=== PATIENT | male | born 1950 | race Caucasian/White ===

== ENCOUNTER 2017-03-19 12:34 | Inpatient (IN) | payer OTHER ==
--- NOTE | ~2017-03-19 | DS ---
Discharge Summary [facility] [address] [place]. [address] NAME: NICCI ONEILL : 48 STATUS : DIS IN PAT#: [id number] AGE: 66 ADM/REG DATE : 03/19/17 MR#: [id number] REPORT SERV DATE: 03/22/17 DICTATED BY: JENA RESENDIZ DATE: 03/21/17 REPORT STATUS : Draft TRANSCRIBED BY: MODL DATE: 03/21/17 ADMISSION DATE: 03/19/2017 DISCHARGE DATE: 03/21/2017 DIAGNOSES OF DISCHARGE: 1. Left lower extremity weakness, resolved. Questionable transient ischemic attack versus vitamin B12 deficiency. 2. History of paroxysmal atrial fibrillation, on Xarelto. 3. Bipolar disorder. 4. Peripheral arterial disease. 5. Coronary artery disease, status post CABG. 6. Significant degenerative joint disease, osteoarthritis. CONSULTANTS ON THE CASE: Dr. Perkins, Neurology. PROCEDURE DONE DURING THIS HOSPITALIZATION: None. TESTS DONE DURING THIS HOSPITALIZATION: Include a CT scan of the brain without contrast on 03/19/2017 showing no acute infarct or hemorrhage, just mild atrophy and chronic white matter gliosis. There is a CT of the thoracic spine without contrast showing numerous osteophytes extended from the vertebral bodies laterally with syndesmophyte formation, but no osteolytic or osteoblastic lesions. CT of the pelvis without contrast showed degenerative joint disease of the lumbar spine, but no acute abnormalities. Spine, lumbar CT showed mild spinal stenosis. Also, CT of the lumbar spine showed mild spinal stenosis at the L2-L3, moderate spinal stenosis of the L3-L4. An MRI of the brain without contrast showed that the patient has mild chronic small-vessel ischemic changes in the supratentorial compartment and mild cortical volume loss. No acute finding demonstrated on noncontrast MRI of the brain. Also, the patient did have a cardiac echo showing a normal left ventricular systolic function and normal left ventricular diastolic dysfunction. Also, right ventricular systolic function intact. No significant valvular dysfunction. No cardiac source of embolus that could be delineated. Also, carotid ultrasound that has been performed on 03/21/2017, showing that there is no significant carotid stenosis. The vertebral arteries exhibit antegrade flow. The patient has been ruled out for WI by serial cardiac enzymes and serial EKGs. His folate was 19.3, vitamin B12 was 190. His TSH was 0.688. His hemoglobin A1c was 4.8. Lactate is 0.7. Also, his UA has been negative, and his blood cultures have been negative at two days. HOSPITAL COURSE: This is a very pleasant 66-year-old gentleman; patient of Dr. Leatha Phelps, primary care provider; admitted to [facility] on 03/19/2017 with left-sided weakness. He has been reporting that going to the shower in the morning of 03/19/2017, he noted a left lower extremity weakness and unable to get himself into the shower without manually lifting his left lower extremity. He was noted at that time, to have significant weakness. As a result, he presented to [facility]. On the 03/20/2017 morning, the weakness had completely resolved. He denied any numbness to the left lower extremity, any weakness in the bilateral lower extremities. No dysarthria or language difficulties. No vertigo or diplopia. No headaches, no chest pain, or shortness of breath. No nausea or Discharge Summary [address] [address] NAME: NICCI ONEILL : 48 STATUS : DIS IN PAT#: [id number] AGE: 66 ADM/REG DATE : 03/19/17 MR#: [id number] REPORT SERV DATE: 03/22/17 DICTATED BY: JENA RESENDIZ DATE: 03/21/17 REPORT STATUS : Draft TRANSCRIBED BY: ANNMARIE DATE: 03/21/17 vomiting. No other complaints. The patient has been admitted to Hospitalist Service and Neurology consult with Dr. Perkins has been requested. It is very important to note that he had an extensive workup with a CT of the brain showing no acute process. MRI of the brain, showing no stroke. Thoracic spine CT demonstrated calcification in the posterior aspect of the T5-T6 with no clear cord compression. The CT of the lumbar spine demonstrated just mild canal stenosis and moderate stenosis at the L2-L3 as well as the L3-L4 level respectively. There was a concern for possible TIA versus related to vitamin B12 deficiency. Recommendation would be to continue his Plavix, continue his home Pravachol, and also to continue his Xarelto for now, and vitamin B12 supplementation. The patient did have hemoglobin A1c checked, which has been 4.8, and his fasting lipid profile showing cholesterol of 166, HDL 49, ALT 85 and triglycerides 163. On 03/21/2017, the patient had been ready for discharge. MEDICATIONS AT DISCHARGE: Include: Lipitor 80 mg p.o. daily, Plavix 75 p.o. daily, vitamin B12 1000 mcg p.o. daily, Valium 10 mg p.o. b.i.d. p.r.n. anxiety, gabapentin 300 at bedtime, Lamictal 200 at bedtime, lisinopril 40 mg p.o. daily, Xarelto 20 mg p.o. daily, sotalol 80 twice a day, Carafate 1 g p.o. with meals, Hytrin 1 mg at bedtime, hydralazine 50 p.o. three times a day, prednisone 10 mg p.o. daily, hydrocodone p.r.n. 0.5-1 tab p.o. three times a day as well as Maxzide hydrochlorothiazide 1 tablet p.o. every morning. The patient has been advised to follow up with his primary care provider, Dr. Mattie Zhang in one week after discharge. It is very important to note that the patient worked with Physical Therapy during this hospitalization. Recommended outpatient Physical Therapy, but the patient has denied adamantly to follow up with outpatient PT. CF/MODL Jena Resendiz M.D. / [id number] CC: Lauren Strauss Frances
--- NOTE | ~2017-03-19 | HP ---
History And Physical [facility] [address] [place]. [address] NAME: NICCI ONEILL : 48 STATUS : ADM IN PAT#: [id number] AGE: 66 ADM/REG DATE : 03/19/17 MR#: [id number] REPORT SERV DATE: 03/20/17 DICTATED BY: SAIGE BRADY DATE: 03/19/17 REPORT STATUS : Draft TRANSCRIBED BY: MODL DATE: 03/19/17 DATE OF ADMISSION: 03/19/2017 CHIEF COMPLAINT: Left-sided weakness. HISTORY OF PRESENT ILLNESS: This is a 66-year-old male who suffers from obesity, CAD with prior CABG, history of mesenteric ischemia status post celiac and SMA stenting, known history of diverticulitis, C. diff colitis as well, hypertension, hyperlipidemia, paroxysmal atrial AFib on Xarelto, IBS, bipolar disease, PAD, known history of celiac and SMA stenting, BPH, osteoarthritis, known history of unclear back surgery, apparently saw Margareth over a year ago. The patient comes in with about a three-day episode of increasing left-sided weakness. It appears to be more in his left lower extremities, some mild encephalopathy per his family as well. This has never occurred before. There are no speech difficulties, no trouble swallowing. The patient does not endorse any known fevers or chills, nausea, vomiting, diarrhea, chest pain or chest pressure, or shortness of breath that the patient endorsed to me. The patient states he has been having increasing left-sided hip pain going to his low back as well. He is not even able to ambulate in the morning given significant pain. Apparently, he has to place his hip in a certain position to be able to ambulate. PAST MEDICAL HISTORY: See above. PAST SURGICAL HISTORY: See above. ALLERGIES: APPARENTLY OXYCODONE, HYDROCODONE, AND PHENERGAN. SOCIAL HISTORY: Does not drink, do drugs, or do alcohol apparently, though he states that was the case in the past but now he drinks possibly 4 ounces of hard liquor 190 proof a day. FAMILY HISTORY: Hypertension at least one parent. OBJECTIVE: VITAL SIGNS: Blood pressure 189 systolic over 110, 98.2 temperature, 69 pulse, 16 respirations, 94% on room air. GENERAL: In no acute distress. HEENT: PERRLA. No scleral icterus. CARDIOVASCULAR: Regular rate and rhythm. No murmur. RESPIRATORY: Decreased breath sounds bibasilar. ABDOMEN: Nontender, nondistended. Positive bowel sounds. EXTREMITIES: No edema. No ecchymosis. NEURO: He initially thought it was February then he said it was March. Otherwise, he is just a bit slow to speech but A and O x4/4. LABORATORY DATA: He has a white count 10.7, hemoglobin 12.7, platelets 164,000. 4.3 potassium, 140 sodium, 32 bicarb, 1.26 creatinine, 15 BUN. INR 1.0. Albumin . LFTs are normal. Troponin negative. 137 sugar. CTA of the head did History And Physical [address] [address] NAME: NICCI ONEILL : 48 STATUS : ADM IN [facility]#: [id number] AGE: 66 ADM/REG DATE : 03/19/17 MR#: [id number] REPORT SERV DATE: 03/20/17 DICTATED BY: SAIGE BRADY DATE: 03/19/17 REPORT STATUS : Draft TRANSCRIBED BY: ANNMARIE DATE: 03/19/17 not show any acute intracranial pathology. EKG is going to be pending. ASSESSMENT: 1. Left-sided weakness. It appears left lower extremity is more weak than the right lower extremity. 2. Mild possible metabolic encephalopathy. Stroke rule out. 3. History of significant spinal degenerative joint disease, recent back surgery a year ago with Dr. Zuluaga with increasing decreased power in his left lower extremity. 4. Systemic inflammatory response syndrome criteria. 5. Hypertensive urgency. PLAN: We will go ahead and admit this patient myself given stroke rule out, permissive hypertension. MRI. Cannot use contrast given mild prerenal azotemia. As a result, he has had MRI without gadolinium. I will CT his thoracolumbar spine as well without contrast. The patient's significant claustrophobia may not be able to sustain the duration of an MRI of the spine at this time. We will also CT his bilateral hips for this inability to ambulate at least in the morning given exquisite pain and possible subluxation. We will give Ativan prior to his MRI. We will also go ahead and panculture the patient given SIRS criteria and we will place on aspirin 325 and Lipitor 80 given he takes 4 ounces of 190 proof alcohol per day. I will give him Librium 10 p.o. t.i.d. and Ativan p.r.n. All questions were answered. It took well over 60 minutes to do. TONY/ANNMARIE Saige Brady DO / [id number] CC: DO Mattie Kennedy
--- NOTE | ~2017-03-19 | CN ---
Consultation Report [facility] [address] [place]. [address] NAME: NICCI ONEILL : 48 STATUS : ADM IN PAT#: [id number] AGE: 66 ADM/REG DATE : 03/19/17 MR#: [id number] REPORT SERV DATE: 03/21/17 DICTATED BY: DATE: REPORT STATUS : Draft TRANSCRIBED BY: MODL DATE: 03/20/17 NEUROLOGY CONSULTATION DATE OF CONSULTATION: 03/20/2017 REASON FOR CONSULT: Lower extremity weakness. HISTORY OF PRESENT ILLNESS: This is a 66-year-old male presented to [facility] on 03/19/2017 secondary to acute onset of left lower extremity weakness. The patient reports going to the shower on the morning of 03/19/2017 with noted left lower extremity, the patient was unable to get himself into the shower without manually lifting his left lower extremity up. The patient was noted to have significant weakness. As a result, the patient presented to [facility]. During the hospital stay, patient was noted to have significant weakness until the morning of 03/20/2017 when the weakness had completely resolved. The patient otherwise denies no significant numbness in the left lower extremity and denies any weakness in the bilateral upper extremity at time of symptom. The patient denies any dysarthria or language difficulties and denies any numbness in the face. The patient in addition also denies any vertigo or diplopia. Patient denies similar events in the past and denies any recent illness, fever, chills, nausea, vomiting, chest pain, or shortness of breath. However, patient does complain of mild shortness of breath today. The patient denies any recent changes in medication and denies any other complaint. Patient does have a history of diverticulitis as well as C. diff colitis, hypertension, hyperlipidemia. The patient does have mesenteric ischemia, status post stents as well as coronary artery disease, status post coronary artery bypass surgery, paroxysmal atrial fibrillation on Xarelto. The patient also has a history of IBS as well as bipolar disorder and peripheral artery disease. The patient denies tobacco, alcohol, or recreational drug usage. ALLERGIES: THE PATIENT REPORTS ALLERGY TO OXYCODONE, HYDROCODONE WELL PHENERGAN. FAMILY HISTORY: Significant for hypertension. MEDICATIONS: The patient's home medications consist of Plavix, Valium, Neurontin, hydralazine, [place], Lamictal, lisinopril, pravastatin, prednisone, Xarelto, Betapace, Carafate, Hytrin, Maxzide. REVIEW OF SYSTEMS: Negative except for those mentioned in the HPI. PHYSICAL EXAMINATION: VITAL SIGNS: At the time of evaluation, patient was noted to have vital signs with T-max of 99.1, heart rate of 59 to 96, respirations of 14 to 20, and blood pressure of 136 to 180 over 62 to 103. GENERAL: Patient is well developed, well nourished, in no acute distress. Consultation Report [facility] [place] [address] [facility] [place]. [address] NAME: NICCI ONEILL : 48 STATUS : ADM IN [facility]#: [id number] AGE: 66 ADM/REG DATE : 03/19/17 MR#: [id number] REPORT SERV DATE: 03/21/17 DICTATED BY: DATE: REPORT STATUS : Draft TRANSCRIBED BY: MODL DATE: 03/20/17 CARDIOVASCULAR: Examination is regular rate and rhythm. No carotid bruits were otherwise auscultated. PULMONARY: Examination was clear to auscultation bilaterally. NEUROLOGICAL: Generally, patient is alert and oriented to person, place, year, and month. Follows simple and 2-step commands. No dysarthria. No aphasia. Intact registration. Minimal difficulty with recall. Cranial nerves 2 through 12: Pupils equal, round, reactive to light. Extraocular eye movement was noted to be intact. Intact peripheral vision. No visual neglect was otherwise appreciated. Symmetrical facial expression and sensation. Midline tongue. Normal palatal movement. Normal hearing. The patient demonstrated 5/5 bilateral upper extremity and bilateral lower extremity strength. No pronator drift was otherwise appreciated. Reports symmetrical sensation bilaterally. Deep tendon reflex was trace throughout. Downgoing toe on bilateral plantar reflexes and normal [id number]-bf-gwoj examination without ataxia. At the time of evaluation, patient demonstrated normal station, normal ambulation without difficulties. LABORATORY STUDIES: Demonstrated white blood cell count of 8.3, hemoglobin of 11.8, hematocrit of 35.2, platelet count of 151. Chemistry panel: Sodium 144, potassium 4.0, chloride 105, bicarb of 32, BUN of 13, creatinine 1.10, glucose of 118, calcium of 9.0, magnesium 1.9. Vitamin B12 of 190, folate of 19.3. CT scan of the brain otherwise demonstrated no acute process with the patient's MRI of the brain demonstrating no acute stroke. The patient does have thoracic spine CT scan which demonstrated calcification in the posterior aspect of T5-T6 with no clear cord compression. Otherwise, CT of lumbar spine demonstrated mild canal stenosis and moderate spinal canal stenosis in the L2-3 as well as L3-4 level respectively. IMPRESSION: Left lower extremity weakness, symptom resolved. NIH Stroke Scale was 0 with symptoms lasted roughly 24 hours. Concern for possible transient ischemic attack versus vitamin B12 deficiency. We will continue Plavix as well as Lipitor and Xarelto for now. We will obtain echocardiogram and carotid Doppler study. Agree with vitamin B12 supplementation. We will also check fasting lipid panel and hemoglobin A1c. RECOMMENDATION: 1. No PT/OT secondary to resolved symptoms. 2. Plavix and Lipitor and Xarelto. 3. Vitamin B12 supplementation. 4. Fasting lipid panel and hemoglobin A1c. 5. Echocardiogram. 6. Carotid Doppler study. [facility]/ANNMARIE Santana Perkins MD Consultation Report [address] [address] NAME: NICCI ONEILL : 48 STATUS : ADM IN [facility]#: [id number] AGE: 66 ADM/REG DATE : 03/19/17 MR#: [id number] REPORT SERV DATE: 03/21/17 DICTATED BY: DATE: REPORT STATUS : Draft TRANSCRIBED BY: ANNMARIE DATE: 03/20/17 / [id number]
[~2017-03-19 12:34] MED LIST: APRES50 PO; ASA5GR PO; ASAB; ASAB PO; B1100 PO; BENTYL20 PO; BETAPACE80 PO; CAT2 PO; CAT3 PO; CHLORTHALID50 MG PO; CYANO1000T PO; DIL4TAB PO; FLAG500TAB PO; FLORASTOR250 MG PO; HYDROCHLOROT50 MG PO; HYT1 PO; IMDUR30 PO; KLONO1 PO; L20 PO; LACT30UDL PO; LEVAQUIN750 MG PO; LEVOTHROID50 MCG PO; LEVSINTAB PO; LINZESS 290 M290 MCG PO; LIPITOR80 MG PO; LISINOPRIL40 MG PO; LOP100 PO; LOP25 PO; MAGOX4 PO; MAX25 PO; MCZ25 PO; MULTIVIT/MIN PO; NITROSTAT0.4 MG SL; NORCO1 TA2 PO; NORCO1 TAB PO; NORV10 PO; NORV5 PO; PLAVIX PO; POTASSIUM GLUCONATE PO; PRAVACHOL40 MG PO; PROTONIX PO; SEROQUEL1C PO; SPIRO50 PO; SUCR PO; THERGRANM PO; TRAN200 PO; TRANDAT100 PO; TUMSROLL PO; VANCOMYCIN 125MG/5ML; VANCOMYCIN 125MG/5ML PO; VANCOMYCIN PO; VITAMIN B-121000 MC1 SL; X25 PO; XANAX1 MG PO; XARELTO20 MG PO; ZOFRAN ODT4 MG PO
[2017-03-19 14:23] LABS: BASOPHILS 0.2 %; BASOPHILS ABSOLUTE 0.02 10/3/uL (0.0-0.16); EOSINOPHILS 0.1 %; EOSINOPHILS ABSOLUTE 0.01 10/3/uL (0.0-0.53); HEMATOCRIT 38.9 % (40.0-51.0); HEMOGLOBIN 12.7 g/dL (13.6-17.8); IMMATURE GRANULOCYTES 1.1 %; IMMATURE GRANULOCYTES ABSOLUTE 0.12 10/3/uL (0.0-0.11); LYMPHOCYTES 9.1 %; LYMPHOCYTES ABSOLUTE 0.97 10/3/uL (0.67-4.30); MEAN CORPUS HGB CONC 32.6 g/dL (32.0-36.0); MEAN CORPUSCULAR HEMOGLOB 32.1 pg (26.0-34.0); MEAN PLATELET VOLUME 9.2 fL (9.2-13.0); MONOCYTES 4.1 %; MONOCYTES ABSOLUTE 0.44 10/3/uL (0.21-1.20); NEUTROPHILS 85.4 %; NEUTROPHILS ABSOLUTE 9.15 10/3/uL (2.02-8.40); PLATELET COUNT 164 10/3/uL (150-400); RBC DISTRIBUTION WIDTH 15.8 % (12.0-16.0); RED CELL COUNT 3.96 10/6/uL (4.7-6.1)
[2017-03-19 14:24] LABS: ER CBC TAT 0 Hrs 07 Mins; MANUAL DIFF NO %; MEAN CORPUSCULAR VOLUME 98.2 fL (80-100); WHITE BLOOD CELLS 10.7 10/3/uL (4.5-10.5)
[2017-03-19 14:29] LABS: PROTIME (NOT ORD) 13.2 SEC (12.0-14.5)
[2017-03-19 14:39] LABS: ALBUMIN 3.3 G/DL (3.5-5.0); BUN (BLOOD UREA NITROGEN) 15 MG/DL (6-23); CALCIUM, SERUM 9.6 MG/DL (8.5-10.4); CHLORIDE, SERUM 102 MMOL/L (96-112); CO2 (CARBON DIOXIDE) 32 MMOL/L (24-34); CREATININE 1.26 MG/DL (0.70-1.30); GFR AFRICAN AMERICAN 67 ML/MIN (>=60); GFR NON AFRICAN AMERICAN 58 ML/MIN (>=60); POTASSIUM, SERUM 4.3 MMOL/L (3.5-5.3); SGPT(ALT) 11 U/L (5-65); SODIUM, SERUM 140 MMOL/L (135-148); TOTAL BILIRUBIN 0.4 MG/DL (0-1.2); TROPONIN I <0.02 NG/ML (<0.05)
[2017-03-19 14:40] LABS: ALKALINE PHOSPHATASE 69 U/L (45-117); GLOBULIN 3.4 G/DL (2.5-4.1); GLUCOSE, SERUM 137 MG/DL (60-99); SGOT(AST) 13 U/L (5-40); TOTAL PROTEIN 6.7 G/DL (6.0-8.5)
[2017-03-19] MEDS ORDERED: BETAPACE80 PO (14:53)
[2017-03-19] MEDS ORDERED: VALIUM10 MG PO ×2 (14:53)
[2017-03-19] MEDS ORDERED: LISINOPRIL40 MG PO (14:54)
[2017-03-19] MEDS ORDERED: XARELTO20 MG PO (14:54)
[2017-03-19] MEDS ORDERED: HYT1 PO (14:55)
[2017-03-19] MEDS ORDERED: PRAVACHOL40 MG PO (14:55)
[2017-03-19] MEDS ORDERED: MAX25 PO (14:55)
[2017-03-19] MEDS ORDERED: NORCO1 TAB PO (14:55)
[2017-03-19] MEDS ORDERED: NEUR300 PO (14:56)
[2017-03-19] MEDS ORDERED: LAMICTAL200 MG PO (14:56)
[2017-03-19] MEDS ORDERED: SUCR PO (14:56)
[2017-03-19] MEDS ORDERED: APRES50 PO (14:56)
[2017-03-19] MEDS ORDERED: P10 PO (14:57)
[2017-03-19] MEDS ORDERED: PLAVIX PO (14:59)
[2017-03-19 18:54] LABS: PROCALCITONIN <0.05 ng/mL (<0.5)
[2017-03-19 19:17] LABS: PHOSPHORUS, SERUM 3.1 MG/DL (2.5-4.5)
[2017-03-19 19:19] LABS: ULTRASENSITIVE TSH 0.688 MCIU/ML (0.358-3.740)
[2017-03-20 05:46] LABS: BUN (BLOOD UREA NITROGEN) 13 MG/DL (6-23); CHLORIDE, SERUM 105 MMOL/L (96-112); CO2 (CARBON DIOXIDE) 32 MMOL/L (24-34); GFR AFRICAN AMERICAN 80 ML/MIN (>=60); GFR NON AFRICAN AMERICAN 69 ML/MIN (>=60); GLUCOSE, SERUM 118 MG/DL (60-99); PHOSPHORUS, SERUM 3.5 MG/DL (2.5-4.5); SODIUM, SERUM 144 MMOL/L (135-148)
[2017-03-20 05:57] LABS: BASOPHILS 0.3 %; BASOPHILS ABSOLUTE 0.03 10/3/uL (0.0-0.16); EOSINOPHILS 0.3 %; EOSINOPHILS ABSOLUTE 0.03 10/3/uL (0.0-0.53); HEMATOCRIT 35.2 % (40.0-51.0); HEMOGLOBIN 11.8 g/dL (13.6-17.8); IMMATURE GRANULOCYTES 0.6 %; IMMATURE GRANULOCYTES ABSOLUTE 0.05 10/3/uL (0.0-0.11); LYMPHOCYTES ABSOLUTE 1.13 10/3/uL (0.67-4.30); MEAN CORPUS HGB CONC 33.5 g/dL (32.0-36.0); MEAN CORPUSCULAR HEMOGLOB 32.5 pg (26.0-34.0); MEAN PLATELET VOLUME 9.8 fL (9.2-13.0); MONOCYTES 7.2 %; MONOCYTES ABSOLUTE 0.62 10/3/uL (0.21-1.20); NEUTROPHILS 78.6 %; PLATELET COUNT 151 10/3/uL (150-400); RBC DISTRIBUTION WIDTH 16.3 % (12.0-16.0); RED CELL COUNT 3.63 10/6/uL (4.7-6.1); WHITE BLOOD CELLS 8.7 10/3/uL (4.5-10.5)
[2017-03-20 06:02] LABS: MANUAL DIFF NO %
[2017-03-20 15:07] LABS: FOLATE 19.3 NG/ML (>5.2)
[2017-03-20 17:47] LABS: ASCORBIC ACID (UR NOT ORDER) NEG (NEG); BILIRUBIN, URINE NEGATIVE (NEG); KETONE, URINE NEGATIVE (NEG); LEUKOCYTE ESTERASE(NOT OR NEG (NEG); WBC (NOT ORDERED) (RFLEX) < 1 (0-5)
[2017-03-20 17:52] LABS: CPK 32 U/L (0-200); TROPONIN I <0.02 NG/ML (<0.05)
[2017-03-20 17:53] LABS: CK-MB 0.8 NG/ML
[2017-03-21 06:04] LABS: BASOPHILS 0.3 %; BASOPHILS ABSOLUTE 0.03 10/3/uL (0.0-0.16); EOSINOPHILS 1.3 %; EOSINOPHILS ABSOLUTE 0.11 10/3/uL (0.0-0.53); HEMATOCRIT 35.9 % (40.0-51.0); HEMOGLOBIN 11.8 g/dL (13.6-17.8); IMMATURE GRANULOCYTES 0.6 %; IMMATURE GRANULOCYTES ABSOLUTE 0.05 10/3/uL (0.0-0.11); LYMPHOCYTES ABSOLUTE 1.91 10/3/uL (0.67-4.30); MANUAL DIFF NO %; MEAN CORPUS HGB CONC 32.9 g/dL (32.0-36.0); MEAN CORPUSCULAR HEMOGLOB 32.2 pg (26.0-34.0); MEAN CORPUSCULAR VOLUME 98.1 fL (80-100); MEAN PLATELET VOLUME 9.6 fL (9.2-13.0); MONOCYTES 9.2 %; NEUTROPHILS 66.6 %; NEUTROPHILS ABSOLUTE 5.79 10/3/uL (2.02-8.40); PLATELET COUNT 153 10/3/uL (150-400); RBC DISTRIBUTION WIDTH 16.4 % (12.0-16.0); RED CELL COUNT 3.66 10/6/uL (4.7-6.1); WHITE BLOOD CELLS 8.7 10/3/uL (4.5-10.5)
[2017-03-21 06:10] LABS: BUN (BLOOD UREA NITROGEN) 14 MG/DL (6-23); CALCIUM, SERUM 8.4 MG/DL (8.5-10.4); CHLORIDE, SERUM 107 MMOL/L (96-112); CHOLESTEROL 166 MG/DL (< 200); CO2 (CARBON DIOXIDE) 32 MMOL/L (24-34); CREATININE 1.17 MG/DL (0.70-1.30); GFR AFRICAN AMERICAN 74 ML/MIN (>=60); GFR NON AFRICAN AMERICAN 64 ML/MIN (>=60); PHOSPHORUS, SERUM 3.7 MG/DL (2.5-4.5); SODIUM, SERUM 143 MMOL/L (135-148)
[2017-03-21 06:16] LABS: CHOL/HDL RATIO(NOT ORDER) 3.4 (0-5); GLUCOSE, SERUM 91 MG/DL (60-99); HDL CHOLESTEROL 49 MG/DL (> 39); LDL CHOLESTEROL 85 MG/DL (< 130); NON-HDL CHOLESTEROL 117 MG/DL (< 160); POTASSIUM, SERUM 3.9 MMOL/L (3.5-5.3); TRIGLYCERIDE 163 MG/DL (< 150)
[2017-03-21] MEDS ORDERED: LIPITOR80 MG PO (14:51)
[2017-03-21] MEDS ORDERED: CYANO1000T PO (14:53)
[2017-06-12] MEDS ORDERED: ZYP5 PO (12:00)
[2017-06-12] MEDS ORDERED: BETAPACE80 PO (12:00)
[2017-06-12] MEDS ORDERED: IPRA17AE INH (12:01)
[2017-06-12] MEDS ORDERED: LAMICTAL200 MG PO (12:01)
[2017-06-12] MEDS ORDERED: L20 PO (12:01)
[2017-06-12] MEDS ORDERED: LISINOPRIL40 MG PO (12:01)
[2017-06-12] MEDS ORDERED: NEUR300 PO (12:01)
[2017-06-12] MEDS ORDERED: XARELTO20 MG PO (12:02)
[2017-06-12] MEDS ORDERED: PRAVACHOL40 MG PO (12:02)
[2017-06-12] MEDS ORDERED: PLAVIX PO (12:02)
[2017-06-12] MEDS ORDERED: HYT1 PO (12:02)
[2017-06-12] MEDS ORDERED: APRES50 PO (12:02)
[2017-06-12] MEDS ORDERED: DYAZIDE1 CAP PO (12:02)
[2017-06-12] MEDS ORDERED: NORCO1 TAB PO (12:04)
[2017-06-17] MEDS ORDERED: BREO ELLIPTA INH (10:57)
[2017-07-14] MEDS ORDERED: ZYVOXPO PO (13:12)
== END 2017-03-21 16:03 | disposition home or self-care (01) | DRG 64 ==
LOC: ER 12:34 → 2SO 17:11
PROVIDERS: Emergency Medicine; Internal Medicine; Psychiatry & Neurology Neurology
DX: I63.9 Cerebral infarction, unspecified (principal); K55.059 Acute (reversible) ischemia of intestine, part and extent unspecified; G93.41 Metabolic encephalopathy; M48.06 Spinal stenosis, lumbar region; I10 Essential (primary) hypertension; I25.10 Atherosclerotic heart disease of native coronary artery without angina pectoris; I48.0 Paroxysmal atrial fibrillation; K58.9 Irritable bowel syndrome, unspecified; I73.9 Peripheral vascular disease, unspecified; F31.9 Bipolar disorder, unspecified; E53.8 Deficiency of other specified B group vitamins; M19.90 Unspecified osteoarthritis, unspecified site; Z88.5 Allergy status to narcotic agent; Z88.8 Allergy status to other drugs, medicaments and biological substances; Z82.49 Family history of ischemic heart disease and other diseases of the circulatory system; Z95.1 Presence of aortocoronary bypass graft
CPT/HCPCS: 70450; 70551; 71020; 72128; 72131; 72192; 80048; 80053; 80061; 81001; 82550; 82553; 82607; 82746; 82962; 83036; 83605; 83735; 84100; 84145; 84443; 84484; 85025; 85610; 85730; 87040; 93005; 93306; 93880; 94640; 97161-GP; 99285; A9270-GY; J0360; J1170

== ENCOUNTER 2017-04-22 23:50 | Inpatient (IN) | payer OTHER ==
--- NOTE | ~2017-04-22 | IDS ---
Interim Discharge Summary [facility] [address] [place]. [address] NAME: NICCI ONEILL : 48 STATUS : ADM IN PAT#: [id number] AGE: 66 ADM/REG DATE : 04/22/17 MR#: [id number] REPORT SERV DATE: 04/28/17 DICTATED BY: EMMANUEL INTERIANO DATE: 04/28/17 REPORT STATUS : Draft TRANSCRIBED BY: MODMee DATE: 04/28/17 ADMISSION DATE: 04/22/2017 DISCHARGE DATE: CURRENT INTERIM DIAGNOSES: List includes: 1. Lumbar stenosis and severe back pain, status post L2-L4 microdiskectomy. 2. Weakness and falls. 3. Anxiety and history of bipolar. 4. Morbid obesity. 5. Atrial fibrillation. 6. Hypertension. 7. Positive troponin on admit likely demand ischemia. 8. Questionable polymyalgia rheumatica. HISTORY OF PRESENT ILLNESS: A pleasant 66-year-old male presented with severe back pain, weakness and falls. Please see initial H and P of Dr. Rene Givens. This patient is admitted to the Hospitalist Service for further evaluation and treatment. Lab work was ordered and followed and pain control was given. CONSULTANTS DURING THIS ADMISSION: Include Cardiology, [facility], Dr. Quiñones; Neurology, Dr. Zamarripa; Ortho Spine, Dr. Kunal Bolivar and Mook Marrero PROCEDURES AND IMAGING DURING THIS ADMISSION: Include an MRI of the lumbar spine demonstrating significant central canal stenosis at L3-L4 and L2-L3. An MRA of the head showing some carotid disease on the left, elim ira of [place]ant appears to be preserved, and the distal vasculature was intact. An MRI of the brain showing evidence for atrophy and old deep white matter changes but nothing acute. MRA of the neck showing carotids, vertebral, subclavian, and brachiocephalic portions are unremarkable. Operation of a left-sided L2-L3, L3-L4 microdiskectomy performed on 04/26/[address] Mook Marrero. CONTINUATION IN PATIENT'S HOSPITAL COURSE: The patient was seen by myself beginning on 04/23/2017 where he was feeling some better given his pain control, was still feeling quite weak and related that he had had several falls at home. He was seen by neurologist, Dr. Jerilyn Zamarripa, who was concerned initially about his risk for stroke, and given the neuro findings, she ordered the MRI of the brain and MRA of the neck, which is described above were essentially within normal limits. He was seen by Ortho Spine, Dr. Kunal Bolivar, who then reviewed his lumbar MRI and given the worsening stenosis he was scheduled for surgery by Dr. Mook Marrero, Ortho Spine, and as stated, this was performed on 04/26/2017. He was seen by Cardiology Services during this admission who did not feel like any further cardiology workup was warranted. He had had a recent carotid ultrasound which was negative in March and also a recent echocardiogram in March as well showing an ejection fraction of 57%. The patient did undergo the above described surgery, recovered well but did have some difficulty with pain control postoperatively requiring some additional adjustments in his pain medication regimen, but he has since improved a great deal. In review of his medical history, he did have some history of significant anxiety, depression, and bipolar in his history and given his continued pain control issues both joint pains and his anxiety, I have Interim Discharge Summary [address] [address] NAME: NICCI ONEILL : 46 STATUS : ADM IN PAT#: [id number] AGE: 66 ADM/REG DATE : 04/22/17 MR#: [id number] REPORT SERV DATE: 04/28/17 DICTATED BY: EMMANUEL INTERIANO DATE: 04/28/17 REPORT STATUS : Draft TRANSCRIBED BY: ANNAMRIE DATE: 04/28/17 started him on Cymbalta and have begun weaning his benzodiazepines. His Xarelto was able to resume postoperatively. He had seen a cook fruit as an outpatient who had apparently been working him up for questionable polymyalgia rheumatica and had placed him on a lenghty steroid taper, which he is currently on steroids in a tapering dose, and he wishes to come off these soon. He was evaluated by Physical Therapy and Occupational Therapy postoperatively who recommended rehab and penitentiary facility at discharge. Currently, working on placement and approval for this. He also would likely benefit from an outpatient sleep study post discharge. I have updated the patient at bedside. Questions were answered. He is in agreement with this plan going forward. Hopeful for dispoition discharge in the next few days or maybe even as early as tomorrow. BEATRICE/MODL Emmanuel Interiano NP / [id number] CC: MD Mattie Alvarado
--- NOTE | ~2017-04-22 | HP ---
History And Physical [address] [place]. [address] NAME: NICCI ONEILL : 46 STATUS : ADM Lula PAT#: [id number] AGE: 66 ADM/REG DATE : 04/22/17 MR#: [id number] REPORT SERV DATE: 04/23/17 DICTATED BY: RADHA HERNANDEZ DATE: 04/23/17 REPORT STATUS : Draft TRANSCRIBED BY: MODL DATE: 04/23/17 DATE OF ADMISSION: 04/22/2017 CHIEF COMPLAINT: A 66-year-old male presenting with severe back pain, weakness, and now falls. HISTORY OF PRESENT ILLNESS: The patient's history was obtained through careful interview with the patient, coupled with review of [facility] medical records. The patient was hospitalized in early March 2017 for "weakness." He had an extensive workup done including an MRI of the brain, carotid ultrasound, and other studies. No clear cause of weakness was found, and the patient was thought to be in stable enough condition to be discharged home. The patient has been doing fairly well but about the last seven or eight days he states "I have been staggering like a drunk man." He has had two falls today and felt increasingly ill. He attributes his unsteadiness to worsening back pain as well. It is mostly in his lower back, radiating to his left hip, aching quality, 9/10 severity that has been present on a daily basis. He describes dyspnea on exertion but no chest pain. No palpitations. He has had a cough that has been increasing over the last week with a thick phlegm that he develops in his throat that he has to swallow. He has had some orthostatic symptoms just today. No nausea, vomiting. No change of bowel or bladder habit. REVIEW OF SYSTEMS: Otherwise, a 14-point review of systems was obtained and was negative. PAST MEDICAL HISTORY: 1. Paroxysmal atrial fibrillation, seen by Dr. Hilliard, [facility] [employer]. 2. C. difficile colitis. 3. Irritable bowel syndrome seen by Dr. Harkins. 4. Bipolar disorder. 5. Benign prostatic hypertrophy. 6. CABG 2011 with two occluded grafts in 2013. 7. Hypertension. 8. SMA and celiac stent placement by Dr. Armendariz. 9. Transient ischemic attack. 10.Anxiety. 11.Elevated cholesterol. 12.B12 deficiency. History And Physical [address] [place]. [address] NAME: NICCI ONEILL : 46 STATUS : ADM Lula PAT#: [id number] AGE: 66 ADM/REG DATE : 04/22/17 MR#: [id number] REPORT SERV DATE: 04/23/17 DICTATED BY: RADHA HERNANDEZ DATE: 04/23/17 REPORT STATUS : Draft TRANSCRIBED BY: MODL DATE: 04/23/17 13.Lipoma of the colon. PAST SURGICAL HISTORY: 1. CABG 2011. 2. Back surgery for spinal stenosis by Dr. Zuluaga. ALLERGIES: TO PHENERGAN AND OXYCODONE. SOCIAL HISTORY: Quit smoking in 2011. No alcohol abuse. Lives in [place], [place]. He is to his who is 20 years younger than him. No alcohol use. He previously worked as a medical officer psychiatry. FAMILY HISTORY: Mother and father with heart disease. Strong family history of diabetes. CURRENT MEDICATIONS: Unknown at this time. We have requested pharmacy to investigate and retrieve a medication list for us. PHYSICAL EXAMINATION: VITAL SIGNS: Temperature 97.8, pulse 94, blood pressure 131/60, respiratory rate 20, O2 saturation 91% on room air. GENERAL: A pleasant, cooperative male. No evidence of distress by my exam. HEENT: Pupils are equal, round, and reactive to light. No conjunctival pallor. No scleral icterus. Nares are patent. Oropharynx is clear of obstruction. Mildly dry mucous membranes. NECK: Trachea midline. No thyromegaly, LYMPH: No cervical lymphadenopathy. No supraclavicular lymphadenopathy. RESPIRATORY: Clear to auscultation at bases. No wheezes, rales, or rhonchi. Normal respiratory effort. CARDIOVASCULAR: Regular rate and rhythm. No murmurs, rubs, or gallops. No extremity edema is appreciated. ABDOMEN: No tenderness on examination, nondistended. No hepatosplenomegaly. DERMATOLOGICAL: Warm and dry extremities. No pallor, no cyanosis. PSYCHIATRIC: Normal affect. Good mood. Alert and oriented x3. LABORATORY DATA: White blood cell count 11.5, hemoglobin 13, hematocrit 39, MCV 100.3, platelets 203. Sodium 142, potassium 4.5, chloride 104, bicarb 35, BUN 18, creatinine 1.32 with a baseline creatinine of 1.1, glucose 147, troponin 0.17, INR 1.1. Urinalysis negative for infection. STUDIES: 1. EKG by my own evaluation shows sinus rhythm. 2. A CT scan of the brain reported from [facility] on 04/21/2017 was "negative.". ASSESSMENT AND PLAN: 1. Severe back pain. Consult Orthopedic surgery to consider epidural injection ?.. 2. Weakness and falls, obtain Neurology consult. Negative MRI of the brain last month. History And Physical [address] [place]. [address] NAME: NICCI ONEILL : 46 STATUS : ADM Lula PAT#: [id number] AGE: 66 ADM/REG DATE : 04/22/17 MR#: [id number] REPORT SERV DATE: 04/23/17 DICTATED BY: RADHA HERNANDEZ DATE: 04/23/17 REPORT STATUS : Draft TRANSCRIBED BY: MODL DATE: 04/23/17 Obtain a Physical Therapy evaluation. 3. Elevated troponin, but no chest pain. History of CABG with occluded grafts though. Obtain a Cardiology consult. 4. Paroxysmal atrial fibrillation. Check telemetry. L/MODL Radha Hernandez M.D. / [id number] CC: Fer Moura M.D.
--- NOTE | ~2017-04-22 | CN ---
Consultation Report [facility] [address] [place]. [address] NAME: NICCI KAY : 46 STATUS : ADM IN PAT#: [id number] AGE: 66 ADM/REG DATE : 04/22/17 MR#: [id number] REPORT SERV DATE: 04/30/17 DICTATED BY: DATE: REPORT STATUS : Draft TRANSCRIBED BY: MODL DATE: 04/23/17 CONSULTATION DATE OF CONSULTATION: 04/23/2017 CHIEF COMPLAINT/REASON FOR CONSULT: Abnormal laboratory values. HISTORY OF PRESENT ILLNESS: Mr. Nicci Kay is a very pleasant 66-year-old gentleman who I have known for many years and taking care of with regard to his coronary artery disease. He presented to hospital due to profound weakness. He and his state that she has actually had to hold him up in the shower because he is unable to even bathe himself anymore because his legs are getting so weak. He states that he feels like his head and his chest are ahead of his body, and at times, he feels like he cannot stand. He has had several falls over the past week due to his leg weakness. He states that he recently had back surgery and he feels like he may have injured his L4 due to his frequent falls. The patient denies any chest pain. He states that at times he feels short of breath especially if he coughs and has sputum production. He also endorses that he has gained about 50 pounds secondary to prednisone use due to a diagnosis of polymyalgia rheumatica. He is followed by Dr. 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 PAST MEDICAL HISTORY: 1. Polymyalgia rheumatica. 2. Paroxysmal atrial fibrillation in sinus rhythm. 3. Remote history of coronary artery disease with known occluded vein graft and patent PAL to the LAD. 4. C difficile colitis. 5. Irritable bowel syndrome. 6. Bipolar disorder. 7. Hypertension. 8. History of peripheral vascular disease, status post stenting to the SMA and celiac arteries. 9. History of TIA. 10.Anxiety. 11.Hyperlipidemia. ALLERGIES: PHENERGAN AND OXYCODONE. SOCIAL HISTORY: The patient is a former smoker. He no longer drinks alcohol. He does not use extracurricular drugs. FAMILY HISTORY: Significant for mother and father both with heart disease and a history of diabetes. Consultation Report [facility] [id number] [place]. [address] NAME: NICCI KAY : 46 STATUS : ADM IN [facility]#: [id number] AGE: 66 ADM/REG DATE : 04/22/17 MR#: [id number] REPORT SERV DATE: 04/30/17 DICTATED BY: DATE: REPORT STATUS : Draft TRANSCRIBED BY: MODL DATE: 04/23/17 OUTPATIENT MEDICATIONS: Include, 1. Plavix 75 mg p.o. daily. 2. Vitamin B12. 3. Valium. 4. Lasix 20 mg p.o. daily. 5. Neurontin 300 mg four times per day. 6. Hydralazine 500 mg p.o. t.i.d. 7. Lamictal. 8. Lisinopril 40 mg p.o. daily. 9. Pravastatin 40 mg p.o. daily. 10.Prednisone 6 mg p.o. daily. 11.Xarelto 20 mg p.o. q.p.m. 12.Betapace 80 mg p.o. b.i.d. 13.Hytrin. 14.Triamterene and hydrochlorothiazide 25 mg p.o. daily. REVIEW OF SYSTEMS: All systems reviewed and is negative except what is dictated in the HPI. PHYSICAL EXAMINATION: VITAL SIGNS: Temperature 97.8, pulse is between 61 and 70 beats per minute, blood pressure is between 103 to 123 over 57 to 64, BMI is 39, weight is 307 pounds. GENERAL: Mr. Kay is a well-appearing 66-year-old gentleman in no distress. NECK: I could not appreciate jugular venous distention or carotid bruits. HEART: Regular rate and rhythm. Soft S1, S2. I could not appreciate murmurs, rubs, or gallops. LUNGS: Clear to auscultation in all garcia. ABDOMEN: Obese and nontender. EXTREMITIES: Warm and well perfused. There is no pitting edema present. MUSCULOSKELETAL: I could not appreciate clubbing or cyanosis to digits. NEUROLOGIC: The patient is able to follow commands. He is slow in thought, but I could not appreciate focal neurologic deficits. DATA: Cardiac troponin has gone from 0.17 to 0.09, hemoglobin 11.3, hematocrit 36, platelets 177, potassium 4.7, creatinine 1.2, BUN 19. An EKG performed demonstrated normal sinus rhythm with nonspecific ST-T segment changes. There is no evidence of ischemia. A chest x- ray performed in the emergency department did not document any acute process. There was no evidence of pulmonary edema. IMPRESSION, REPORT, AND PLAN: 1. Profound leg weakness of unclear cause. 2. Polymyalgia rheumatica on prednisone wean. 3. Weakness and falls. 4. Abnormal lab value in the setting of no chest pain or EKG changes. There is no evidence of acute coronary syndrome. Consultation Report [facility] [id number] [place]. [address] NAME: NICCI KAY : 46 STATUS : ADM IN PAT#: [id number] AGE: 66 ADM/REG DATE : 04/22/17 MR#: [id number] REPORT SERV DATE: 04/30/17 DICTATED BY: DATE: REPORT STATUS : Draft TRANSCRIBED BY: MODL DATE: 04/23/17 5. Paroxysmal atrial fibrillation in sinus rhythm. 6. History of coronary artery disease, status post CABG in 2011 currently asymptomatic. 7. Hypertension. 8. Obesity with recent weight gain on prednisone. RECOMMENDATIONS: I suspect the troponin is likely secondary to the patient's stress response. His recent echocardiogram demonstrated preserved left ventricular systolic function. I have discussed this extensively with the patient and his , and we have elected to continue medical management of the patient's known coronary artery disease and continue Xarelto for primary cardiac prevention. No additional cardiac tests and studies are planned. It has been my pleasure to participate in his care. Bob/ANNMARIE Araceli Hilliard M.D. / [id number] CC: Lauren Hartman FRANCES
--- NOTE | ~2017-04-22 | CN ---
Consultation Report [facility] [address] [place]. [address] NAME: NICCI ONEILL : 46 STATUS : ADM IN [facility]#: [id number] AGE: 66 ADM/REG DATE : 04/22/17 MR#: [id number] REPORT SERV DATE: 04/24/17 DICTATED BY: JERILYN ZAMARRIPA DATE: 04/23/17 REPORT STATUS : Draft TRANSCRIBED BY: ANNMARIE DATE: 04/23/17 NEUROLOGICAL CONSULTATION-EVALUATION DATE OF CONSULTATION: 04/23/2017 LOCATION OF THE PATIENT: CDU, bed 30. HISTORY OF PRESENT ILLNESS: This is a 66-year-old male with known history of coronary artery disease, atrial fibrillation, currently on Xarelto, history of lumbar spinal stenosis, and history of polymyalgia rheumatica diagnosed in approximately four years, treated with steroid medications 20 mg a day, which apparently was started to be tapered in the last week. As per the patient's , the patient has had episodes of falling, difficulty with his balance, weakness in his legs, and difficulty to support himself when he goes into shower. Overall, she has had difficulty taking care of him. The patient stated that in the last week, he has felt as if his brain was in the "fog." The patient stated that he has had double vision. Denied difficulty with his speech, chewing, or swallowing. Has had weakness involving his left arm and to a lesser degree, both legs. He has had multiple complaints which included pain in his neck and lower back and pain in his legs and in his feet. The patient has had a history of lumbosacral spine surgery approximately a year ago. His most recent CT scan of the lumbosacral spine shows moderate stenosis in the L3-4 and mild stenosis in L1-2. The patient denied recent history of significant injuries. Denied difficulty controlling his bowel or bladder. The patient has had a history of recurrent atrial fibrillation and has had about two cardioversions in the last three to four years. PAST MEDICAL HISTORY: As mentioned above. The patient stated that he had an MRI last month which was apparently done in this hospital; however, none of the records show MRI. The patient did have CT of the brain which showed scattered microvascular changes which appeared to be chronic. No acute changes were noted. Paroxysmal atrial fibrillation, has been followed by Dr. Hilliard. Has a history of irritable bowel syndrome, C. difficile colitis, history of bipolar disorder, CABG in 2012 with occluded graft in 2013, history of TIA unspecified times, history of hypertension, and history of B12 deficiency. REVIEW OF SYSTEMS: 14 points were positive for recent increase of weight approximately 50 pounds since the patient has started his steroids by mouth approximately four years ago. The patient stated that he does not have obstructive sleep apnea; however, the appeared to disagree with that statement. The patient denies having unusual episodes of sleepiness; however, does complain of being fatigued all the time. Has had shortness of breath on exertion. The rest of 14-point of review of system was negative. SOCIAL HISTORY: The patient stopped smoking in 2011. The patient drinks three to four beers a day. 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 Consultation Report [address] [place]. [address] NAME: NICCI ONEILL : 46 STATUS : ADM IN [facility]#: [id number] AGE: 66 ADM/REG DATE : 04/22/17 MR#: [id number] REPORT SERV DATE: 04/24/17 DICTATED BY: JERILYN ZAMARRIPA DATE: 04/23/17 REPORT STATUS : Draft TRANSCRIBED BY: ANNMARIE DATE: 04/23/17 PAST SURGICAL HISTORY: Significant history of lumbosacral spine surgery and CABG 2011 and surgery of the lumbar spine in 2015. FAMILY HISTORY: Significant history of heart disease in patient's father. Strong family history of diabetes. MEDICATIONS: Plavix 75 mg p.o. daily, Lamictal 200 mg daily, lisinopril 40 mg p.o. daily, pravastatin 40 mg q.h.s., terazosin 1 mg q.h.s., hydralazine 50 mg q.8 hours, prednisone currently 5 mg a day, sotalol 80 mg p.o. b.i.d., Xarelto 20 mg p.o. daily, Neurontin 300 mg q.6 hours, Valium 10 mg t.i.d., furosemide 20 mg p.o. daily, and 1 mg of vitamin B12 daily. PHYSICAL EXAMINATION: VITAL SIGNS: Blood pressure 111/58, pulse was 61, respirations 18, and temperature was 98.1. HEAD AND NECK: Showed him to be normocephalic. There was no evidence of trauma. Auscultation of the neck showed no evidence of bruits. Eye exam: Sclerae were not icteric. Conjunctiva were pink. ENT exam showed rather enlarged tongue airway was small, Mallampati class 3-4. Neck was supple. There is no Kernig or Brudzinski. Cervical range of motion was not impaired. On auscultation of the neck, there was no evidence of carotid bruits. No thyromegaly. No cervical lymphadenopathy. No JVD noted. CHEST: Symmetrical. LUNGS: Clear to auscultation. HEART: Regular S1 and S2. I did not appreciate any murmurs, or rubs. ABDOMEN: Obese, soft, nontender. No organomegaly noted. EXTREMITIES: Showed no pitting edema, which extended from the knees down. No clubbing or cyanosis noted. SKIN: Skin was clear. No ecchymosis, petechiae, or hemorrhage. NEUROLOGICAL EXAMINATION: MENTAL STATUS EXAM: The patient's mental status exam was normal. The patient appeared mildly anxious. His speech was fluent. There was no evidence of aphasia or dysarthria. Thought content and mood appeared appropriate. Distant and recent memory testing showed no evidence of deficits. The patient was oriented x3 to time, place, self, and his current situation. CRANIAL NERVE EXAM II THROUGH XII: Visual garcia on confrontation were intact. Funduscopic exam showed no evidence of papilledema, hemorrhages, or exudate. Pupils were 3 mm, reactive to light and accommodation. Extraocular movements were full. There was no nystagmus. No limitation of upward or downward gaze was noted. Facial sensation, muscles of mastication, and muscles of facial expression show no evidence of asymmetry or weakness. Lower cranial nerves were intact. Tongue was midline. No atrophy or fibrillations were noted. Palate elevated symmetrically. Sternocleidomastoid and trapezius muscles were symmetrical and normal. MOTOR EXAM: Muscle bulk and tone appeared within normal range. Strength on testing showed no evidence of significant weakness except for minimal distal weakness in the left hand. Deep tendon reflexes were 1+ over 2 in the biceps and brachioradialis, triceps was absent on the right and trace on the left. Deep tendon reflexes were absent in lower extremities. Consultation Report [facility] [address] [place]. [address] NAME: NICCI ONEILL : 46 STATUS : ADM IN PAT#: [id number] AGE: 66 ADM/REG DATE : 04/22/17 MR#: [id number] REPORT SERV DATE: 04/24/17 DICTATED BY: JERILYN ZAMARRIPA DATE: 04/23/17 REPORT STATUS : Draft TRANSCRIBED BY: ANNMARIE DATE: 04/23/17 SENSORY EXAM: Pinprick, light touch, and vibration showed distal symmetrical decrease of temperature, vibration, and to lesser degree position sense in distal lower extremities. The sensory deficit extended up to the knee, appeared symmetrical. CEREBELLAR EXAM: Gspoxv-bb-[id number] showed very minimal and tremor on [id number] on the left. Yxfw-tj-aavs appeared intact bilaterally. Rapid alternating movements appeared slightly clumsy on the left. GAIT: The patient had no difficulty getting up from the stretcher, appeared to have slight difficulty with his balance, however, pronounced difficulty with balance on turning. The patient could not perform tandem walking. LABORATORY STUDIES: Sodium 138, potassium 4.7, BUN 19, creatinine 1.2, glucose 144, calcium 9.1, and magnesium 2. WBC count 10.3, hemoglobin 11.3, hematocrit 36.1, and platelet count 177,000. PT/INR of 2.1. TSH 0.51. BNP 133. CT scan of the head which was obtained on 03/19/2017 showed small amount of microvascular changes in the periventricular region. No ventriculomegaly noted. Mild atrophy seen, and no acute changes present. IMPRESSION: 1. Recent increase of episodes of falling associated with "weakness" and episodes of blurred and double vision, the patient has increased risk for recurrent stroke. 2. Past history of paroxysmal atrial fibrillation, history of cardioversion x2, currently on Xarelto. Rule out recurrent atrial fibrillation. 3. Recent in the past four months, use of prednisone for a presumed polymyalgia rheumatica may contribute to the patient's subjective weakness involving his muscles. On the examination, the patient does not have any evidence of fatigability or significant proximal muscle weakness to suggest presence of steroid myopathy. The patient is currently trying to gradually decrease the use of steroids; however, he has had difficulty with his weaning of process. 4. History of lumbar stenosis and history of chronic pain. 5. History of anxiety. The patient is currently on Valium 10 mg three times a day, which appears to be an excessive amount of medication that may contribute to the patient's symptoms. 6. Probable obstructive sleep apnea. Recommend outpatient polysomnography study to document the presence of obstructive or central apnea. Presence of obstructive sleep apnea may contribute to the patient having additional risk factors for a recurrent stroke. RECOMMENDATIONS: We would recommend: 1. MRI of the brain to rule out new acute posterior circulation stroke. 2. Obtain records from the patient's garment cutter to determine whether the diagnosis of polymyalgia rheumatica has been substantiated with other tests. Currently, the patient needs to continue weaning of process of his steroids. The patient has increased risk of falling and increased risk of fractures. I would recommend to have PT and OT evaluation and if needed rehab transfer. The patient's stated that she is not Consultation Report [address] [address] NAME: NICCI ONEILL : 46 STATUS : ADM IN [facility]#: [id number] AGE: 66 ADM/REG DATE : 04/22/17 MR#: [id number] REPORT SERV DATE: 04/24/17 DICTATED BY: JERILYN ZAMARRIPA DATE: 04/23/17 REPORT STATUS : Draft TRANSCRIBED BY: ANNMARIE DATE: 04/23/17 able to take care of the patient in view of recent episodes of falling. 3. The patient has gained 50 pounds in the last for four months since starting prednisone use. We would recommend dietary evaluation and counseling. The patient is currently on telemetry. We will monitor for recurrent atrial paroxysmal atrial fibrillation. We would also recommend to obtain orthostatic blood pressure readings to determine the patient may have orthostatic hypotension. Amongst the imaging studies, the patient appeared to have CTA of neck and brain in 2013, which showed no significant areas of stenosis, however, significant amount of plaque was noted in both carotid siphons. We would recommend to obtain either MRA or CTA of neck and brain which will be included in the request for the MRI imaging. Thank you for allowing us to participate in this patient's care. OSIEL/ANNMARIE Jerilyn Zamarripa MD / [id number] CC: Lauren Hartman FRANCES
--- NOTE | ~2017-04-22 | CN ---
Consultation Report [facility] [address] [place]. [address] NAME: NICCI ONEILL : 46 STATUS : ADM IN PAT#: [id number] AGE: 66 ADM/REG DATE : 04/22/17 MR#: [id number] REPORT SERV DATE: 04/24/17 DICTATED BY: KUNAL DE LA TORRE DATE: 04/23/17 REPORT STATUS : Draft TRANSCRIBED BY: MODL DATE: 04/23/17 CONSULTATION DATE OF CONSULTATION: 04/23/2017 CHIEF COMPLAINT: Back pain. HISTORY OF PRESENT ILLNESS: This is a 66-year-old morbidly obese male who is admitted for complaints of pain in the low back, as well as frequent falls. The patient was hospitalized around the beginning of March and in fact, a CT was done while hospitalized on 03/19/2017 for very similar problems, particularly pain in his left buttock and leg, as well as weakness in his left leg and falling. It spontaneously improved and ultimately, he was discharged. The patient has had a history of spinal surgery by Dr. Estuardo Zuluaga approximately a year and a half ago. The patient did have good outcome from that surgery. It appears the surgery was at L5-S1 from reviewing the CT of 03/19/2017. The patient has not had recent change in his symptoms other than just a subjective increase in pain. He has fallen many times over the last several weeks and he fell twice just recently. Denies any change or loss of bowel and bladder control. He rates his pain now at a 6 or 7 on a scale of 0-10, seems to be worse with increasing activity such as bending, twisting, and lifting. It is not particularly worse with just standing and walking and it is not necessarily relieved by sitting. He has had no fever, chills, or night sweats, etc. The chart reviewed for its entirety history and physical as that has been reviewed. Please see that past medical history, surgical history, current medications, allergies, social history, and family history. PHYSICAL EXAMINATION: He was alert, cooperative, well oriented. He did not appear in acute painful distress. He was able to sit himself up out of bed. Overall, his neck had reasonable range of motion. He has a negative Lhermitte sign. Negative Spurling sign. Negative abducted arm sign. His motor strengths are 5/5 in the upper extremities. Roman sign was negative. The patient had hyporeflexia, which is 1/4 for biceps, triceps, and brachioradialis. No dermatomal sensory deficit found in the upper extremities. The lumbar spine has a small midline incision, which is well healed. He has some limited range of motion. He has more pain with flexion versus extension. He had normal motor strength in all muscle groups of both lower extremities. His reflexes are absent, both patella and Achilles, and no particular dermatomal sensory deficits found. Toes are downgoing. No ankle clonus found. No evidence of pathologic reflexes were found. He did not exhibit any abnormal pain behaviors. Yuniel signs are negative. Fabere signs are negative. Consultation Report [place] [id number] [facility] [place]. [address] NAME: NICCI ONEILL : 48 STATUS : ADM IN [facility]#: [id number] AGE: 66 ADM/REG DATE : 04/22/17 MR#: [id number] REPORT SERV DATE: 04/24/17 DICTATED BY: KUNAL DE LA TORRE DATE: 04/23/17 REPORT STATUS : Draft TRANSCRIBED BY: ANNMARIE DATE: 04/23/17 Orthopedically, he has no pain with moving hips, knees, or ankles. There are weak pulses in the lower extremities, but the capillary refill is approximately 4 seconds. IMAGING: CT scan from 03/19/2017 is reviewed. He has had a previous left L5-S1 decompression. He does have marked disk degeneration, collapse of the disk space at L5-S1. In addition, he has nonsegmental calcification of the anterior longitudinal ligament and the thoracic and lumbar spine. He has good sagittal alignment overall. ASSESSMENT: Forestier disease/nonsegmental DISH. He also has bilateral sacroiliac degenerative joint disease per CT scan, and he has had prior decompression on the left at L5 S1. Disk degeneration, L5-S1. RECOMMENDATION: At this time, I do not see any major neurologic deficits, and I do not think he is reasonable candidate for epidural since he is on Plavix as has been suggested by the hospitalist. I am not sure this gentleman really has anything that is surgically manageable. MRI of the cervical and lumbar spine has been ordered. I will review these and make any further recommendations based on those images but currently, I would not recommend epidural. I see no further surgical intervention that is necessary. RIVAS/ANNMARIE Kunal De La Torre D.O. / [id number] CC: Lauren Hartman FRANCES
--- NOTE | ~2017-04-22 | OP ---
Record Of Operation [facility] [address] [place]. [address] NAME: NICCI ONEILL : 46 STATUS : ADM IN PAT#: [id number] AGE: 66 ADM/REG DATE : 04/22/17 MR#: [id number] REPORT SERV DATE: 04/26/17 DICTATED BY: MOOK MARRERO DATE: 04/26/17 REPORT STATUS : Draft TRANSCRIBED BY: MODL DATE: 04/26/17 DATE OF PROCEDURE: 04/26/2017 PREOPERATIVE DIAGNOSIS: L2 to L4 disk disease, disk herniation, stenosis, and lumbar radiculopathy. POSTOPERATIVE DIAGNOSIS: L2 to L4 disk disease, disk herniation, stenosis, and lumbar radiculopathy. PROCEDURE: Left-sided L2-3 and L3-4 microdiscectomy, use of operative microscope, minimal access spine technology, intraoperative O-arm CT scan with computer navigation, with decompression of the bilateral L2 through L4 nerve roots. SURGEON: Mook Marrero DO. ANESTHESIA: General. ESTIMATED BLOOD LOSS: 15 mL. COMPLICATIONS: None. INDICATIONS: The patient is a pleasant 66-year-old, admitted to the medical service with intractable lower extremity pain, difficulty with ambulating, and paresthesias in the extremities. Failed conservative treatment. Unable to ambulate independently. After discussion of risks and benefits and informed consent, he elected to proceed with surgery. DESCRIPTION OF PROCEDURE: I identified the patient in the holding area, consent was obtained, went to the operating room, underwent general anesthesia with endotracheal intubation, prepped and draped in the usual sterile fashion, operative safety pause was performed, and then we proceeded with surgery. The O-arm registration frame was placed in the iliac crest and O-arm was brought in for intraoperative CT scan. Computer registration materials were verified. Under computer guidance, a left longitudinal incision was made over the L2 to L4 level, taking down through the fascial layer. Tube dilators were used to minimally invasively dissect to the L3-L4 level. Operative microscope was brought in. A mark was used to perform a laminotomy. Dedrick performed a foraminotomy. Disk was removed with a pituitary. The Kerrison was used to remove the majority of the lamina. The dural sac was gently retracted and the contralateral laminal foraminotomy was also performed through the left-sided approach at the L2-L3 level. This was repeated again at the L3-L4 level. The L2 to L4 nerves were free of compression at the end the case bilaterally. Irrigation was performed. Hemostasis was achieved. 40 mg of Depo-Medrol was injected. Layered closure was performed. Sterile dressings were applied. The patient awoke, extubated, and taken recovery room in stable condition. OPERATIVE FINDINGS: Left L2 to L4 disk disease and stenosis. Record Of Operation [address] [address] NAME: NICCI ONEILL : 46 STATUS : ADM IN PAT#: [id number] AGE: 66 ADM/REG DATE : 04/22/17 MR#: [id number] REPORT SERV DATE: 04/26/17 DICTATED BY: MOOK MARRERO DATE: 04/26/17 REPORT STATUS : Draft TRANSCRIBED BY: ANNMARIE DATE: 04/26/17 RADHAMES/ANNMARIE Mook Marrero DO / [id number] CC: MD EJ Alvarado FRANCES
--- NOTE | ~2017-04-22 | DS ---
Discharge Summary [facility] [address] [place]. [address] NAME: NICCI ONEILL : 46 STATUS : DIS IN PAT#: [id number] AGE: 66 ADM/REG DATE : 04/22/17 MR#: [id number] REPORT SERV DATE: 05/06/17 DICTATED BY: MAGGIE CHAWLA DATE: 05/02/17 REPORT STATUS : Draft TRANSCRIBED BY: MODL DATE: 05/02/17 ADMISSION DATE: 04/22/2017 DISCHARGE DATE: 05/02/2017 CONSULTANTS: 1. Mook Marrero, , Ortho Spine surgery. 2. Kunal oBlivar D.O., Ortho Spine surgery. 3. Jerilyn Zamarripa MD and Amanda Cueto DNP, [facility]-, Neurology. 4. Araceli Hilliard M.D., Cardiology. DISCHARGE DIAGNOSES: 1. Acutely worsened back pain impairing ability to walk. 2. Severe lumbar spinal stenosis at L3-4 and L2-3. 3. Small spontaneous intracranial hemorrhage, bilateral. 4. Transient metabolic encephalopathy related to medications. 5. Paroxysmal atrial fibrillation with previous cardioversions x2. 6. Coronary artery disease with bypass in 2013. 7. History of bipolar disorder and anxiety. 8. Polymyalgia rheumatica, on steroid taper from Rheumatology. 9. History of irritable bowel and previous Clostridium difficile colitis. 10.Peripheral arterial disease with previous stents to the celiac and superior mesenteric artery. 11.History of previous transient ischemic attack. 12.Demand coronary ischemia. 13.Obesity with body mass index of 39.5. 14.Suspected obstructive sleep apnea. HISTORY: This patient presented to the emergency room at [facility] with severe back pain to where he was having difficulty walking. He was having multiple falls related to unsteadiness and weak legs. No loss of control of bowel or bladder. Because of this, he was referred to our team in the emergency room. He had mildly elevated cardiac troponin 0.17. He was seen by Neurology, Dr. Zamarripa, she recommended MRI of the brain, as well as trying to get notes from his duty engineer. She also was concerned that his recent rapid weight gain might be related to prednisone. He had consultation from Ortho Spine Dr. Kunal Bolivar and also then from Dr. Mook Marrreo, they reviewed the MRI which is referred to above and the patient was felt to benefit from a surgical intervention. On 04/26/2017, he had a left-sided L2-3 and L3-[address] Marrero. Post procedure, he is still having significant pain. One of our team started him on Cymbalta and he was also on a muscle relaxer, this in addition to his other medications created some metabolic encephalopathy, but after stopping his Cymbalta and Robaxin, he had significant improvement where he was alert, oriented, and stayed that way thereafter. At that same point in time, Neurology did have him go through a repeat MRI pictures of the brain. That MRI brain on 04/29/2017, showed new small amounts of free blood in the ventricular systems layering in the dependent occipital horns. No evidence of obstructive hydrocephalus. The patient was taken off Xarelto and Plavix. He had a followup CT scan, as the CTA of the Discharge Summary [address] [address] NAME: NICCI ONEILL : 46 STATUS : DIS IN PAT#: [id number] AGE: 66 ADM/REG DATE : 04/22/17 MR#: [id number] REPORT SERV DATE: 05/06/17 DICTATED BY: MAGGIE CHAWLA DATE: 05/02/17 REPORT STATUS : Draft TRANSCRIBED BY: ANNMARIE DATE: 05/02/17 brain on 05/01/2017, they were not able to visualize the blood in the ventricles, there was no evidence of aneurysm, there was mild atrophy and deep white matter microangiopathic changes, mild atherosclerotic plaque of the carotids with a right greater than left, but less than 50% stenosis. Neurology, Dr. Perkins, and Solange Cueto recommend staying off Plavix and Xarelto. Repeat CT of the brain in two weeks, if there was no further concern about bleed then to restart the Xarelto for stroke prophylaxis in this gentleman with atrial fibrillation, but not to restart aspirin or Plavix. The patient also had a mild COPD flare up while he was here with wheezing and rhonchi, but that improved dramatically within a few days in just a few simple Atrovent treatments. We did not give him albuterol because of his history of atrial fibrillation. He is undergoing a gradual, but steady wean on his prednisone by his duty engineer and plans to continue that. At one point in time, the patient felt like he was going to need rehab and did not do very well with Physical Therapy, but he improved dramatically, so by discharge, he is planned for home health with a walker and visiting PT and wheelchair for when he has longer distances to travel. He is to have a followup CT scan of the brain without contrast in two weeks. He had a followup appointment with [facility] to assess that CT scan. He is to see his primary physician Dr. Ran Zhang in one to two weeks. Ortho Spine, Dr. Marrero in two weeks. [employer] Dr. Levin at [place] in approximately four weeks. DISCHARGE MEDICATIONS: Vitamin B12 1000 mcg daily, Valium has been reduced to 5 mg b.i.d. from his previous 10 mg t.i.d., Colace 100 mg b.i.d., Lasix 20 mg daily, gabapentin 300 mg q.i.d., Lamictal 200 mg daily, lisinopril 40 mg daily (his creatinine has been in good at 1.03), Pravachol 40 mg at bedtime, Betapace 80 mg b.i.d., Hytrin 1 mg at bedtime, prednisone he is at 6 mg a day and we will continue his tapering course as per his duty engineer instructions; Tylenol 650 q.6 hours p.r.n. mild pain, Gibbon 7.5/325 one q.4 hours p.r.n. more severe pain #12 prescribed, no refill, Doculax of 15 mg daily p.r.n. constipation, milk of magnesia 30 mL b.i.d. p.r.n. constipation, hydralazine 50 mg t.i.d., Atrovent HFA two puffs q.i.d. p.r.n. wheezing or shortness of breath. We have given him written instructions about not starting back on his Plavix and not starting back on his Xarelto at this point in time. Please see comments above about the possibility of restarting his Xarelto if his repeat CT is judged low risk by Neurology in their two week followup. I spent 33 minutes today with the patient with discharge planning with Physical Therapy. DICTATED BY: Maggie Chawla M.D. RSG/MODL Discharge Summary [facility] [address] [address] NAME: NICCI ONEILL : 46 STATUS : DIS IN PAT#: [id number] AGE: 66 ADM/REG DATE : 04/22/17 MR#: [id number] REPORT SERV DATE: 05/06/17 DICTATED BY: MAGGIE CHAWLA DATE: 05/02/17 REPORT STATUS : Draft TRANSCRIBED BY: MODL DATE: 05/02/17 Maggie Chawla M.D. / [id number] CC: Lauren Sarah FRANCES Jason C. Eck, DO Araceli Hilliard M.D. [facility] TESHA LEVIN MD
[2017-04-22 22:11] LABS: BASOPHILS 0.2 %; BASOPHILS ABSOLUTE 0.02 10/3/uL (0.0-0.16); EOSINOPHILS 1.4 %; EOSINOPHILS ABSOLUTE 0.16 10/3/uL (0.0-0.53); ER CBC TAT 0 Hrs 05 Mins; HEMATOCRIT 39.4 % (40.0-51.0); HEMOGLOBIN 12.6 g/dL (13.6-17.8); IMMATURE GRANULOCYTES 0.6 %; IMMATURE GRANULOCYTES ABSOLUTE 0.07 10/3/uL (0.0-0.11); LYMPHOCYTES 22.7 %; LYMPHOCYTES ABSOLUTE 2.62 10/3/uL (0.67-4.30); MEAN CORPUSCULAR HEMOGLOB 32.1 pg (26.0-34.0); MEAN CORPUSCULAR VOLUME 100.3 fL (80-100); MEAN PLATELET VOLUME 9.7 fL (9.2-13.0); MONOCYTES 8.4 %; MONOCYTES ABSOLUTE 0.97 10/3/uL (0.21-1.20); NEUTROPHILS 66.7 %; NEUTROPHILS ABSOLUTE 7.69 10/3/uL (2.02-8.40); RBC DISTRIBUTION WIDTH 14.2 % (12.0-16.0); RED CELL COUNT 3.93 10/6/uL (4.7-6.1); WHITE BLOOD CELLS 11.5 10/3/uL (4.5-10.5)
[2017-04-22 22:12] LABS: MANUAL DIFF NO %; PLATELET COUNT 203 10/3/uL (150-400)
[2017-04-22 22:17] LABS: ASCORBIC ACID (UR NOT ORDER) 20 (NEG); BILIRUBIN, URINE NEGATIVE (NEG); ER URINALYSIS TAT 0 Hrs 11 Mins; KETONE, URINE NEGATIVE (NEG); LEUKOCYTE ESTERASE(NOT OR NEG (NEG); NITRITE (URINE) NEG (NEG); WBC (NOT ORDERED) (RFLEX) 2 (0-5)
[2017-04-22 22:21] LABS: INTERNATIONAL NORMAL RATI 1.1 UNITS (-); PROTIME (NOT ORD) 13.9 SEC (12.0-14.5)
[2017-04-22 22:28] LABS: BUN (BLOOD UREA NITROGEN) 18 MG/DL (6-23); CALCIUM, SERUM 9.2 MG/DL (8.5-10.4); CHLORIDE, SERUM 104 MMOL/L (96-112); CO2 (CARBON DIOXIDE) 35 MMOL/L (24-34); CREATININE 1.32 MG/DL (0.70-1.30); GFR AFRICAN AMERICAN 64 ML/MIN (>=60); GFR NON AFRICAN AMERICAN 55 ML/MIN (>=60); GLUCOSE, SERUM 147 MG/DL (60-99); POTASSIUM, SERUM 4.5 MMOL/L (3.5-5.3); SODIUM, SERUM 142 MMOL/L (135-148)
[2017-04-22 22:31] LABS: CHEST PAIN PROFILE TAT 0 Hrs 25 Mins; TROPONIN I 0.17 NG/ML (<0.05)
[~2017-04-22 23:50] MED LIST changes: +LAMICTAL200 MG PO; +NEUR300 PO; +P10 PO; +VALIUM10 MG PO
[2017-04-23] MEDS ORDERED: L20 PO (01:04)
[2017-04-23] MEDS ORDERED: XARELTO20 MG PO (01:04)
[2017-04-23] MEDS ORDERED: HYT1 PO (01:27)
[2017-04-23] MEDS ORDERED: PRAVACHOL40 MG PO (01:27)
[2017-04-23] MEDS ORDERED: BETAPACE80 PO (01:27)
[2017-04-23] MEDS ORDERED: PLAVIX PO (01:28)
[2017-04-23] MEDS ORDERED: LAMICTAL200 MG PO (01:28)
[2017-04-23] MEDS ORDERED: VALIUM10 MG PO (01:29)
[2017-04-23] MEDS ORDERED: NEUR600 PO (01:29)
[2017-04-23] MEDS ORDERED: MAX25 PO (01:30)
[2017-04-23] MEDS ORDERED: LISINOPRIL40 MG PO (01:30)
[2017-04-23] MEDS ORDERED: APRES50 PO (01:30)
[2017-04-23] MEDS ORDERED: VITAMIN B12 PO (01:31)
[2017-04-23] MEDS ORDERED: P1 PO ×2 (01:32→01:33)
[2017-04-23 05:55] LABS: BASOPHILS 0.4 %; BASOPHILS ABSOLUTE 0.04 10/3/uL (0.0-0.16); EOSINOPHILS 0.6 %; EOSINOPHILS ABSOLUTE 0.06 10/3/uL (0.0-0.53); HEMOGLOBIN 11.3 g/dL (13.6-17.8); IMMATURE GRANULOCYTES 0.7 %; IMMATURE GRANULOCYTES ABSOLUTE 0.07 10/3/uL (0.0-0.11); LYMPHOCYTES 17.7 %; LYMPHOCYTES ABSOLUTE 1.82 10/3/uL (0.67-4.30); MEAN CORPUS HGB CONC 31.4 g/dL (32.0-36.0); MEAN CORPUSCULAR HEMOGLOB 31.4 pg (26.0-34.0); MEAN PLATELET VOLUME 9.8 fL (9.2-13.0); MONOCYTES 8.5 %; MONOCYTES ABSOLUTE 0.88 10/3/uL (0.21-1.20); NEUTROPHILS 72.1 %; NEUTROPHILS ABSOLUTE 7.44 10/3/uL (2.02-8.40); PLATELET COUNT 177 10/3/uL (150-400); RBC DISTRIBUTION WIDTH 14.3 % (12.0-16.0); WHITE BLOOD CELLS 10.3 10/3/uL (4.5-10.5)
[2017-04-23 05:56] LABS: MANUAL DIFF NO %
[2017-04-23 06:02] LABS: INTERNATIONAL NORMAL RATI 2.1 UNITS (-); PARTIAL THROMBO TIME 46.7 SEC (22.5-37.2); PROTIME (NOT ORD) 23.6 SEC (12.0-14.5)
[2017-04-23 06:26] LABS: ALBUMIN 3.1 G/DL (3.5-5.0); ALKALINE PHOSPHATASE 61 U/L (45-117); BUN (BLOOD UREA NITROGEN) 19 MG/DL (6-23); CALCIUM, SERUM 9.1 MG/DL (8.5-10.4); CHLORIDE, SERUM 102 MMOL/L (96-112); CO2 (CARBON DIOXIDE) 35 MMOL/L (24-34); GFR AFRICAN AMERICAN 72 ML/MIN (>=60); GFR NON AFRICAN AMERICAN 62 ML/MIN (>=60); GLUCOSE, SERUM 144 MG/DL (60-99); POTASSIUM, SERUM 4.7 MMOL/L (3.5-5.3); SGOT(AST) 10 U/L (5-40); SGPT(ALT) 10 U/L (5-65); SODIUM, SERUM 138 MMOL/L (135-148); TOTAL BILIRUBIN 0.2 MG/DL (0-1.2); TOTAL PROTEIN 6.1 G/DL (6.0-8.5)
[2017-04-23 06:27] LABS: TROPONIN I 0.09 NG/ML (<0.05)
[2017-04-23 16:04] LABS: C-REACTIVE PROTEIN 19.1 MG/L (<8.0)
[2017-04-26 04:40] LABS: BASOPHILS 0.3 %; BASOPHILS ABSOLUTE 0.03 10/3/uL (0.0-0.16); EOSINOPHILS ABSOLUTE 0.18 10/3/uL (0.0-0.53); HEMATOCRIT 35.5 % (40.0-51.0); HEMOGLOBIN 11.3 g/dL (13.6-17.8); IMMATURE GRANULOCYTES 0.4 %; IMMATURE GRANULOCYTES ABSOLUTE 0.04 10/3/uL (0.0-0.11); LYMPHOCYTES 30.2 %; LYMPHOCYTES ABSOLUTE 2.71 10/3/uL (0.67-4.30); MEAN CORPUS HGB CONC 31.8 g/dL (32.0-36.0); MEAN CORPUSCULAR HEMOGLOB 31.4 pg (26.0-34.0); MEAN CORPUSCULAR VOLUME 98.6 fL (80-100); MEAN PLATELET VOLUME 9.4 fL (9.2-13.0); MONOCYTES 10.5 %; MONOCYTES ABSOLUTE 0.94 10/3/uL (0.21-1.20); NEUTROPHILS 56.6 %; NEUTROPHILS ABSOLUTE 5.07 10/3/uL (2.02-8.40); PLATELET COUNT 191 10/3/uL (150-400); RBC DISTRIBUTION WIDTH 14.1 % (12.0-16.0)
[2017-04-26 04:45] LABS: MANUAL DIFF NO %
[2017-04-26 04:50] LABS: BUN (BLOOD UREA NITROGEN) 22 MG/DL (6-23); CALCIUM, SERUM 8.7 MG/DL (8.5-10.4); CHLORIDE, SERUM 100 MMOL/L (96-112); CO2 (CARBON DIOXIDE) 38 MMOL/L (24-34); CREATININE 1.17 MG/DL (0.70-1.30); GFR AFRICAN AMERICAN 74 ML/MIN (>=60); GFR NON AFRICAN AMERICAN 64 ML/MIN (>=60); GLUCOSE, SERUM 99 MG/DL (60-99); POTASSIUM, SERUM 4.1 MMOL/L (3.5-5.3); SODIUM, SERUM 140 MMOL/L (135-148)
[2017-04-26 07:07] LABS: INTERNATIONAL NORMAL RATI 1.2 UNITS (-); PARTIAL THROMBO TIME 31.9 SEC (22.5-37.2)
[2017-04-26 07:08] LABS: PROTIME (NOT ORD) 15.2 SEC (12.0-14.5)
[2017-04-26 09:57] LABS: BASOPHILS 0.2 %; BASOPHILS ABSOLUTE 0.02 10/3/uL (0.0-0.16); EOSINOPHILS 1.6 %; EOSINOPHILS ABSOLUTE 0.17 10/3/uL (0.0-0.53); HEMOGLOBIN 11.7 g/dL (13.6-17.8); IMMATURE GRANULOCYTES 0.6 %; IMMATURE GRANULOCYTES ABSOLUTE 0.06 10/3/uL (0.0-0.11); LYMPHOCYTES 18.8 %; LYMPHOCYTES ABSOLUTE 2.05 10/3/uL (0.67-4.30); MEAN CORPUS HGB CONC 31.6 g/dL (32.0-36.0); MEAN CORPUSCULAR HEMOGLOB 31.4 pg (26.0-34.0); MEAN CORPUSCULAR VOLUME 99.2 fL (80-100); MONOCYTES 7.3 %; MONOCYTES ABSOLUTE 0.79 10/3/uL (0.21-1.20); NEUTROPHILS 71.5 %; NEUTROPHILS ABSOLUTE 7.79 10/3/uL (2.02-8.40); PLATELET COUNT 201 10/3/uL (150-400); RED CELL COUNT 3.73 10/6/uL (4.7-6.1); WHITE BLOOD CELLS 10.9 10/3/uL (4.5-10.5)
[2017-04-26 09:59] LABS: MANUAL DIFF NO %
[2017-04-26 10:10] LABS: CALCIUM, SERUM 8.7 MG/DL (8.5-10.4); CHLORIDE, SERUM 102 MMOL/L (96-112); CO2 (CARBON DIOXIDE) 37 MMOL/L (24-34); CREATININE 1.15 MG/DL (0.70-1.30); GFR AFRICAN AMERICAN 75 ML/MIN (>=60); GFR NON AFRICAN AMERICAN 65 ML/MIN (>=60); GLUCOSE, SERUM 117 MG/DL (60-99); POTASSIUM, SERUM 4.3 MMOL/L (3.5-5.3); SODIUM, SERUM 142 MMOL/L (135-148)
[2017-04-26 10:11] LABS: BUN (BLOOD UREA NITROGEN) 18 MG/DL (6-23)
[2017-04-27 05:20] LABS: BASOPHILS 0.2 %; BASOPHILS ABSOLUTE 0.03 10/3/uL (0.0-0.16); EOSINOPHILS 0.2 %; EOSINOPHILS ABSOLUTE 0.03 10/3/uL (0.0-0.53); HEMATOCRIT 35.6 % (40.0-51.0); HEMOGLOBIN 11.3 g/dL (13.6-17.8); IMMATURE GRANULOCYTES 0.1 %; IMMATURE GRANULOCYTES ABSOLUTE 0.02 10/3/uL (0.0-0.11); LYMPHOCYTES 13.8 %; LYMPHOCYTES ABSOLUTE 1.97 10/3/uL (0.67-4.30); MEAN CORPUS HGB CONC 31.7 g/dL (32.0-36.0); MEAN CORPUSCULAR HEMOGLOB 31.4 pg (26.0-34.0); MEAN CORPUSCULAR VOLUME 98.9 fL (80-100); MEAN PLATELET VOLUME 9.6 fL (9.2-13.0); MONOCYTES 10.3 %; MONOCYTES ABSOLUTE 1.47 10/3/uL (0.21-1.20); NEUTROPHILS 75.4 %; NEUTROPHILS ABSOLUTE 10.73 10/3/uL (2.02-8.40); PLATELET COUNT 191 10/3/uL (150-400); RBC DISTRIBUTION WIDTH 14.2 % (12.0-16.0); WHITE BLOOD CELLS 14.3 10/3/uL (4.5-10.5)
[2017-04-27 05:21] LABS: MANUAL DIFF NO %
[2017-04-27 05:38] LABS: BUN (BLOOD UREA NITROGEN) 15 MG/DL (6-23); CHLORIDE, SERUM 102 MMOL/L (96-112); CO2 (CARBON DIOXIDE) 33 MMOL/L (24-34); CREATININE 1.09 MG/DL (0.70-1.30); GFR AFRICAN AMERICAN 80 ML/MIN (>=60); GFR NON AFRICAN AMERICAN 69 ML/MIN (>=60); GLUCOSE, SERUM 117 MG/DL (60-99); POTASSIUM, SERUM 4.3 MMOL/L (3.5-5.3); SODIUM, SERUM 138 MMOL/L (135-148)
[2017-04-27 07:25] LABS: PHOSPHORUS, SERUM 3.6 MG/DL (2.5-4.5)
[2017-04-28 06:47] LABS: HEMATOCRIT 34.1 % (40.0-51.0); HEMOGLOBIN 10.8 g/dL (13.6-17.8); MEAN CORPUS HGB CONC 31.7 g/dL (32.0-36.0); MEAN CORPUSCULAR HEMOGLOB 31.9 pg (26.0-34.0); MEAN CORPUSCULAR VOLUME 100.6 fL (80-100); MEAN PLATELET VOLUME 9.5 fL (9.2-13.0); PLATELET COUNT 189 10/3/uL (150-400); RBC DISTRIBUTION WIDTH 14.1 % (12.0-16.0); RED CELL COUNT 3.39 10/6/uL (4.7-6.1); WHITE BLOOD CELLS 11.2 10/3/uL (4.5-10.5)
[2017-04-28 06:52] LABS: MANUAL DIFF YES %
[2017-04-28 07:47] LABS: BAND NEUTROPHILS 9 %; EOSINOPHILS 1 %; EOSINOPHILS ABSOLUTE (CALC) 0.11 10/3/uL (0.0-0.53); HYPOCHROMIA 1+ (3-10/OIF) (0-2/OIF); LYMPHOCYTES 15 %; LYMPHOCYTES ABSOLUTE (CALC) 1.68 10/3/uL (0.67-4.30); MACROCYTES 1+ (5-10/OIF) (0-5/OIF); MONOCYTES 11 %; MONOCYTES ABSOLUTE (CALC) 1.23 10/3/uL (0.21-1.20); NEUTROPHILS ABSOLUTE (CALC) 8.18 10/3/uL (2.02-8.40); PLATELET ESTIMATE ADQ (ADEQUATE); POLYCHROMASIA 1+ (2-5/OIF) (0-1/OIF); SEGMENTED NEUTROPHIL (0) 64 %; TOTAL NUCLEATED CELLS 100
[2017-04-29 16:02] LABS: BASOPHILS 0.1 %; BASOPHILS ABSOLUTE 0.01 10/3/uL (0.0-0.16); EOSINOPHILS 0.9 %; HEMATOCRIT 31.6 % (40.0-51.0); HEMOGLOBIN 10.2 g/dL (13.6-17.8); IMMATURE GRANULOCYTES 0.4 %; IMMATURE GRANULOCYTES ABSOLUTE 0.04 10/3/uL (0.0-0.11); LYMPHOCYTES ABSOLUTE 1.28 10/3/uL (0.67-4.30); MEAN CORPUS HGB CONC 32.3 g/dL (32.0-36.0); MEAN CORPUSCULAR HEMOGLOB 31.8 pg (26.0-34.0); MEAN CORPUSCULAR VOLUME 98.4 fL (80-100); MEAN PLATELET VOLUME 9.5 fL (9.2-13.0); MONOCYTES 10.1 %; MONOCYTES ABSOLUTE 1.08 10/3/uL (0.21-1.20); NEUTROPHILS 76.5 %; NEUTROPHILS ABSOLUTE 8.18 10/3/uL (2.02-8.40); PLATELET COUNT 195 10/3/uL (150-400); RBC DISTRIBUTION WIDTH 13.9 % (12.0-16.0); RED CELL COUNT 3.21 10/6/uL (4.7-6.1); WHITE BLOOD CELLS 10.7 10/3/uL (4.5-10.5)
[2017-04-29 16:03] LABS: MANUAL DIFF NO %
[2017-04-29 16:23] LABS: BUN (BLOOD UREA NITROGEN) 14 MG/DL (6-23); CALCIUM, SERUM 8.9 MG/DL (8.5-10.4); CHLORIDE, SERUM 97 MMOL/L (96-112); CO2 (CARBON DIOXIDE) 37 MMOL/L (24-34); GFR AFRICAN AMERICAN 101 ML/MIN (>=60); GFR NON AFRICAN AMERICAN 87 ML/MIN (>=60); GLUCOSE, SERUM 120 MG/DL (60-99); POTASSIUM, SERUM 4.4 MMOL/L (3.5-5.3); SODIUM, SERUM 139 MMOL/L (135-148)
[2017-04-29 19:58] LABS: PROCALCITONIN <0.05 ng/mL (<0.5)
[2017-05-01 10:05] LABS: CREATININE 1.03 MG/DL (0.70-1.30)
[2017-05-02] MEDS ORDERED: V5 PO (17:08)
[2017-05-02] MEDS ORDERED: BIST PO (17:12)
[2017-05-02] MEDS ORDERED: T PO (17:12)
[2017-05-02] MEDS ORDERED: DSS PO (17:13)
[2017-05-02] MEDS ORDERED: MOMUD PO (17:14)
[2017-05-02] MEDS ORDERED: IPRA17AE INH (17:16)
[2017-05-02] MEDS ORDERED: NORCO1 TAB PO (17:17)
[2017-06-12] MEDS ORDERED: BETAPACE80 PO (12:00)
[2017-06-12] MEDS ORDERED: ZYP5 PO (12:00)
[2017-06-12] MEDS ORDERED: LISINOPRIL40 MG PO (12:01)
[2017-06-12] MEDS ORDERED: NEUR300 PO (12:01)
[2017-06-12] MEDS ORDERED: IPRA17AE INH (12:01)
[2017-06-12] MEDS ORDERED: L20 PO (12:01)
[2017-06-12] MEDS ORDERED: LAMICTAL200 MG PO (12:01)
[2017-06-12] MEDS ORDERED: DYAZIDE1 CAP PO (12:02)
[2017-06-12] MEDS ORDERED: PRAVACHOL40 MG PO (12:02)
[2017-06-12] MEDS ORDERED: PLAVIX PO (12:02)
[2017-06-12] MEDS ORDERED: XARELTO20 MG PO (12:02)
[2017-06-12] MEDS ORDERED: APRES50 PO (12:02)
[2017-06-12] MEDS ORDERED: HYT1 PO (12:02)
[2017-06-12] MEDS ORDERED: NORCO1 TAB PO (12:04)
[2017-06-17] MEDS ORDERED: BREO ELLIPTA INH (10:57)
[2017-07-14] MEDS ORDERED: ZYVOXPO PO (13:12)
== END 2017-05-02 18:38 | DRG 518 ==
LOC: ER 23:50 → CDU1 23:59 → CDU2 04-23 01:21 → 6NO 04-24 15:56
PROVIDERS: Anesthesiology; Hospitalist; Internal Medicine; Nurse Practitioner Family; Orthopaedic Surgery; Student in an Organized Health Care Education/Training Program
PROC: 4A1104G Monitoring of Peripheral Nervous Electrical Activity, Intraoperative, Open Approach (ICD-10-PCS; 2017-04-26)
PROC: 0ST20ZZ Resection of Lumbar Vertebral Disc, Open Approach (ICD-10-PCS; principal; 2017-04-26 06:45)
DX: M51.16 Intervertebral disc disorders with radiculopathy, lumbar region (principal); G92 Toxic encephalopathy; I61.9 Nontraumatic intracerebral hemorrhage, unspecified; J44.1 Chronic obstructive pulmonary disease with (acute) exacerbation; I25.810 Atherosclerosis of coronary artery bypass graft(s) without angina pectoris; I24.8 Other forms of acute ischemic heart disease; I48.0 Paroxysmal atrial fibrillation; M35.3 Polymyalgia rheumatica; F41.9 Anxiety disorder, unspecified; K58.9 Irritable bowel syndrome, unspecified; E53.8 Deficiency of other specified B group vitamins; E78.00 Pure hypercholesterolemia, unspecified; F31.9 Bipolar disorder, unspecified; N40.0 Benign prostatic hyperplasia without lower urinary tract symptoms; T43.215A Adverse effect of selective serotonin and norepinephrine reuptake inhibitors, initial encounter; T42.8X5A Adverse effect of antiparkinsonism drugs and other central muscle-tone depressants, initial encounter; I73.9 Peripheral vascular disease, unspecified; E66.9 Obesity, unspecified; Z86.73 Personal history of transient ischemic attack (TIA), and cerebral infarction without residual deficits; Z87.891 Personal history of nicotine dependence; Z91.81 History of falling; Z79.01 Long term (current) use of anticoagulants; Z95.828 Presence of other vascular implants and grafts; Z68.39 Body mass index [BMI] 39.0-39.9, adult
CPT/HCPCS: 36415; 70496; 70498; 70544; 70548; 70551; 70553; 71010; 71020; 72148; 80048; 80053; 81001; 82565; 83735; 83880; 84100; 84145; 84443; 84484; 85025; 85610; 85652; 85730; 86140; 86850; 86900; 86901; 88304; 88311; 93005; 94640; 96374; 97110-GO; 97110-GP; 97116-GP; 97162-GP; 97166-GO; 97530-GO; 99285; A9270-GY; A9577; J0690; J1030; J1170; J1720; J2250; J2370; J2405; J2710; J3010; Q9967